=== PATIENT | male | born 1970 | race Hispanic/Latino ===

== ENCOUNTER 2022-09-09 02:07 | Emergency (ER) | payer BC, OTHER ==
[~2022-09-09] VITALS: Ht 175.3 cm; Wt 99.8 kg
[~2022-09-09 02:07] MED LIST: ASPI-556 PO; ATOR20TA65 PO; LOSA25TA41 PO; METF-444 PO
[2022-09-09] MEDS ORDERED: ONDANSETRON 4MG INJ ONE (02:14)
[2022-09-09] MEDS ORDERED: LORAZEPAM 2 MG/ML 1 ML VIAL ONE (02:16)
[2022-09-09 02:24] LABS: BASOPHILS % (AUTO) 0.7 % (0.0-5.0); EOSINOPHILS % (AUTO) 3.9 % (0.0-8.0); HEMATOCRIT 42.1 % (42-54); LYMPHOCYTES % (AUTO) 41.3 % (21.0-51.0); MEAN CORPUSCULAR HEMOGLOBIN 29.7 pg (27.0-33.0); MEAN CORPUSCULAR HGB CONC 34.4 g/dL (32.0-36.0); MEAN CORPUSCULAR VOLUME 86.3 fL (79-99); MONOCYTES % (AUTO) 5.2 % (3.0-13.0); NEUTROPHILS % (AUTO) 48.3 % (40.0-77.0); PLATELET COUNT (AUTO) 298 K/uL (130-400); RED BLOOD CELL COUNT(AUTO) 4.88 MIL/uL (4.50-6.20); RED CELL DISTRIBUTION WIDTH 11.9 % (11.0-15.5)
[2022-09-09] MEDS ORDERED: 0.9%NACL 1000ML 1,000 ML IV SCH (02:30)
[2022-09-09] MEDS ORDERED: LORAZEPAM 2 MG/ML 1 ML VIAL IVP ONE (02:30)
[2022-09-09] MEDS ORDERED: ONDANSETRON 4MG INJ IVP ONE (02:30)
[2022-09-09 02:38] LABS: INR 0.96 (0.85-1.15); PROTHROMBIN TIME 10.5 SEC (9.6-11.6)
[2022-09-09 02:39] LABS: PARTIAL THROMBOPLASTIN TIME 24.8 SEC (26.3-35.5)
[2022-09-09 02:41] LABS: ALBUMIN 4.2 g/dL (3.5-5.0); CREATININE 1.1 mg/dL (0.5-1.5); TOTAL PROTEIN, SERUM 8.7 g/dL (6.0-8.3)
[2022-09-09] MEDS ORDERED: POTASSIUM CHLORIDE 20 MEQ/100 ML BAG IV SCH (03:00)
[2022-09-09] MEDS ORDERED: ONDA-104 PO (04:46)
[2022-09-09] MEDS ORDERED: OMEP40CA21 PO (04:46)
[2022-09-09 05:12] VITALS: BP 141/86
== END 2022-09-09 05:35 | disposition home or self-care (01) ==
LOC: EDH 02:07
DX: E86.0 Dehydration (principal); F41.9 Anxiety disorder, unspecified; R11.2 Nausea with vomiting, unspecified; F12.10 Cannabis abuse, uncomplicated; Z79.82 Long term (current) use of aspirin; Z79.84 Long term (current) use of oral hypoglycemic drugs; Z79.899 Other long term (current) drug therapy
CPT/HCPCS: 99284; 96374; 71045; 96361; 96375; 84484; 80053; 85025; 85610; 85730; 36415; 93005 ×3; J7030; J2405; J2060; J3480

== ENCOUNTER 2025-03-13 16:32 | Emergency (ER) | payer BC ==
[~2025-03-13] VITALS: Ht 175.3 cm; Wt 93.0 kg
[~2025-03-13 16:32] MED LIST changes: +OMEP40CA21 PO; +ONDA-104 PO
--- NOTE | 2025-03-13 17:06 | ERN ---
ED Note History of Present Illness Stated Complaint: FEVER Chief Complaint: Fever Time Seen by MD: 16:38 Dictation: PATIENT IS A 54-YEAR-OLD MALE WITH COMPLAINTS OF HAVING LOW-GRADE FEVER CHILLS FOR SEVERAL DAYS AFTER A TOOTH EXTRACTION IN [place] LAST SATURDAY. THE DENTIST EXTRACTED TOOTH 1. NO ANTIBIOTICS WERE PRESCRIBED AT THAT TIME. HE SAW HIS PRIMARY CARE DOCTOR WHO WHO PRESCRIBED AMOXICILLIN. HE ALSO STATES HE HAS HAD A NONPRODUCTIVE COUGH FOR THE LAST SEVERAL DAYS. HE HAS NOT BEEN TO SEE HIS PRIMARY CARE DOCTOR. HE IS CURRENTLY AFEBRILE IN THE EMERGENCY ROOM. FOLLOWING NOTED TO THE SOCKET PROXIMAL 1. SOCKET PATIENT ALSO STATES HE HAS PERIODS WHERE HE HAS CHOKING EPISODE WHEN HE WAKES UP AND FEELS LIKE HE CAN NOT BREATHE. NEVER HAD ASLEEP STEADY BEFORE HAS NEVER BEEN DIAGNOSED WITH OBSTRUCTIVE APNEA OR SLEEP APNEA. STRONGLY ADVISED PATIENT TO TELL THIS TO HIS PRIMARY CARE DOCTOR FOR REFERRAL TO PULMONOLOGY AND SLEEP STUDY IN THE FUTURE IF NEEDED. Allergies: Coded Allergies: No Known Allergies (Verified Allergy, Unknown, 06/03/19) Home Meds Active Scripts Ondansetron HCl (Ondansetron HCl) 4 Mg Tablet, 4 MG PO TIDP PRN for VOMITING, #20 TAB Prov:CHELSEA ALFARO MD 09/09/22 Omeprazole (Omeprazole) 40 Mg Capsule.dr, 40 MG PO DAILY, #30 CAP Prov:CHELSEA ALFARO MD 09/09/22 Reported Medications Metformin HCl (Metformin HCl) 500 Mg Tablet, 500 MG PO TIDMEALS 06/06/19 Atorvastatin Calcium (Atorvastatin Calcium) 20 Mg Tablet, 20 MG PO HS 06/06/19 Aspirin (Aspir 81) 81 Mg Tablet.dr, 81 MG PO DAILY, TAB 06/06/19 Losartan Potassium (Losartan Potassium) 25 Mg Tablet, 25 MG PO DAILY 06/06/19 Past Medical History Past Medical History: Diabetes-Type II, High Cholesterol, Heart Disease, Hypertension, Other Additional Past Medical Hx: SHINGLES Surgical History: None Family History: Negative Social History: Drugs, ETOH, Lives with family RN Note Reviewed/Agreed w/PFSH: Yes Review of System Dictation CONSTITUTIONAL: NEGATIVE EXCEPT FOR HPI HEAD/FACE: NEGATIVE EXCEPT FOR HPI EENT: NEGATIVE EXCEPT FOR HPI GINGIVAL ERYTHEMA SWELLING PROXIMAL SOCKET 1. RESPIRATORY: NEGATIVE EXCEPT FOR HPI SHORTNESS A BREATH GASTROINTESTINAL/ABDOMINAL: NEGATIVE EXCEPT FOR HPI GENITOURINARY: NEGATIVE EXCEPT FOR HPI MUSCULOSKELETAL: NEGATIVE EXCEPT FOR HPI INTEGUMENTARY: NEGATIVE EXCEPT FOR HPI NEUROLOGICAL/PSYCH: NEGATIVE EXCEPT FOR HPI HEMATOLOGIC/LYMPHATIC: NEGATIVE EXCEPT FOR HPI ALL SYSTEMS NEGATIVE, EXCEPT NOTED ABOVE. 13 POINT REVIEW OF SYSTEMS ASSESSED AND ALL NEGATIVE EXCEPT FOR ABOVE. Initial Vital Sign VS Vital Signs Date Time Temp Pulse Resp B/P (MAP) Pulse Ox O2 Delivery O2 Flow Rate FiO2 03/13/25 16:34 98.2 89 16 125/75 96 Room Air 03/13/25 17:35 0 21 Physical Exam Dictation VITAL SIGNS REVIEWED AFEBRILE IN THE EMERGENCY ROOM. GENERAL APPEARANCE: ALERT, ORIENTED X 3, NO ACUTE DISTRESS, WELL DEVELOPED, NOURISHED. HEAD AND FACE: NON-TRAUMATIC. EYES: PERRL, PINK CONJUNCTIVAS, EYELID NO TRAUMA, ANTERIOR CHAMBER WITH ARCUS SENILIS. EARS: PINNAS INTACT AND NO SIGNS OF TRAUMA OR ERYTHEMA EAR CANALS CLEAR AND NO DISCHARGE TM NO ERYTHEMA NOSE: NO DISCHARGE, NO BLEEDING. OROPHARYNX: MODERATE GINGIVAL ERYTHEMA TO SOCKET 1. PHARYNX CLEAR,NO ERYTHEMA, TONSILS NO EXUDATES, NO ABSCESSES NOTED, MUCOUS MEMBRANE MOIST NECK: SUPPLE, NON-TENDER, NO THYROMEGALY, NO MASSES, NO JVD, NO BRUITS BREAST:DEFERRED CHEST:NO TENDERNESS, NO CREPITUS, NO PARADOXICAL MOVEMENT, NO RETRACTIONS LUNGS:CLEAR, WELL-VENTILATED, SYMMETRIC, NO RALES, NO WHEEZING, NO RHONCHI, NO STRIDOR, GOOD BREATH SOUNDS BILATERALLY NO RETRACTIONS HEART: REGULAR RATE, REGULAR RHYTHM, NO MURMUR, NO GALLOPS VASCULAR: NO PERIPHERAL EDEMA, ABDOMEN: SOFT, POSITIVE BOWEL SOUNDS, NONDISTENDED, NO GUARDING, NONTENDER, NO REBOUND, NO MASSES NO HEPATOMEGALY, NO SPLENOMEGALY, NO DAVIS'S SIGN, NO HERNIAS. RECTAL: DEFERRED GENITAL: DEFERRED NEUROLOGICAL: NORMAL SPEECH, MOTOR FUNCTION INTACT, SENSORY FUNCTION INTACT MUSCULOSKELETAL: NECK NONTENDER, FULL RANGE OF MOTION, BACK NONTENDER, FULL RANGE OF MOTION, EXTREMITIES: NONTENDER, FULL RANGE OF MOTION SKIN: COLOR PINK, DRY, NO TURGOR, NO RASH, NO LACERATIONS, NO ABRASIONS, NO CONTUSIONS. LYMPHATIC: DEFERRED Results (Laboratory/Radiology) Laboratory/Radiology PLEURAL SPACES: No evidence of pleural effusion or pneumothorax. MEDIASTINUM: Cardiac size and mediastinal contours within normal limits. BONES: No acute osseous abnormality. IMPRESSION: 1. No acute cardiopulmonary findings. /[place] Labs Reviewed?: Yes ED Course ED Course Orders Procedure Category Date Status Time Chest 1vw RAD 03/13/25 Resulted 17:04 Clindamycin 150mg Cap PHA 03/13/25 Complete (Cleocin 150mg Cap 17:30 Current Medications Medications (Trade) Dose Ordered Sig/Everardo Route PRN Reason Start Time Stop Time Status Last Admin Dose Admin Clindamycin HCl (Cleocin 150mg Cap) 600 mg ONCE ONCE PO 03/13/25 17:30 03/13/25 17:31 DC 03/13/25 17:59 Vital Signs Date Time Temp Pulse Resp B/P (MAP) Pulse Ox O2 Delivery O2 Flow Rate FiO2 03/13/25 17:35 98.2 90 16 111/62 98 Room Air* 0 21 03/13/25 16:34 98.2 89 16 125/75 96 Room Air 1800/SPOKE WITH PATIENT IN HIS AT LENGTH. THEY ARE AWARE THAT CHEST X SHOWS MILD ATELECTASIS HOWEVER NO ACUTE DISEASE. ALSO STOP AMOXICILLIN FROM [place] AND TAKE CLINDAMYCIN DIRECTED UNTIL GONE. ADDITIONALLY I WE WILL PRESCRIBE HIM AN ALBUTEROL INHALER FOR OCCASIONAL DYSPNEA TESSALON FOR COUGH Medical Decision Making MDM MEDICAL DISCHARGE MAKING BASED ON CHEST X FOR COMPLAINTS OF CONGESTION CHEST X-RAY NEGATIVE EXCEPT FOR MILD ATELECTASIS PATIENT HAS A AN OBVIOUS DENTAL INFECTION GINGIVAL ERYTHEMA SWELLING PROXIMAL SOCKET 1. GIVEN CLINDAMYCIN 600 MG A LOADING DOSE HOME WITH ALBUTEROL/TESSALON/CLINDAMYCIN TOLD SEE HIS PRIMARY CARE DOCTOR FOR DX & DISP Disposition: Discharge Departure Impression: Primary Impression: Dental infection Additional Impressions: Atelectasis of both lungs, Dyspnea Condition: Stable Scripts Albuterol Sulfate (Ventolin Hfa/Proventil Hfa/Proair Hfa) 90 Mcg Puff 2 PUFF IH Q4H for WHEEZING, #1 INHALER 0 Refills Prov: EVER SANCHEZ [employer] ENGINEER 03/13/25 Clindamycin HCl (Clindamycin HCl) 300 Mg Capsule 1 CAP PO QID for 10 Days, #40 CAP 0 Refills Prov: EVER SANCHEZ [employer] ENGINEER 03/13/25 Benzonatate (Tessalon Perles) 100 Mg Cap 200 MG PO TID for cough, #60 CAP 0 Refills Prov: EVER SANCHEZ 03/13/25 Additional Instructions: FOLLOW-UP WITH PRIMARY CARE PROVIDER IN 1 TO 2 DAYS. TAKE MEDICATIONS DIRECTED HERE IN THE EMERGENCY ROOM. OKAY TO CONTINUE HOME MEDICATIONS UNLESS OTHERWISE DISCUSSED DURING YOUR VISIT IN THE EMERGENCY ROOM TODAY. RETURN TO Y OUR NEAREST EMERGENCY ROOM IF SYMPTOMS WORSEN OR IF THERE IS NO IMPROVEMENT. CALL 911 IF YOU NEED IMMEDIATE ASSISTANCE. TAKE TYLENOL OR MOTRIN [id number] NEEDED AND IF NO CONTRAINDICATIONS ARE PRESENT. INCREASE ORAL HYDRATION. A WOUND CULTURE OR URINE CULTURE WAS ORDERED HERE IN THE EMERGENCY ROOM DEPARTMENT PLEASE FOLLOW-UP WITH PRIMARY CARE PROVIDER AND ADVISE THEM TO GET REPEAT PORTS FROM OUR FACILITY. IF YOU HAD ANY [place] WRAP/SPLINTS THAT WERE APPLIED HERE, PLEASE DO NOT REMOVE THEM UNTIL YOU SEE YOUR PRIMARY CARE OR SPECIALTY. USE ALBUTEROL INHALER EVERY4 HOURS WHILE AWAKE FOR THE NEXT THREE DAYS. THEN ONLY NEEDED FOR SHORTNESS BREATH. TAKE TESSALON NEEDED FOR COUGH. STOP AMOXICILLIN AND BEGIN CLINDAMYCIN DIRECTED UNTIL GONE. SEE YOUR DENTIST FOR FOLLOW UP IN THE NEXT 2-3 DAYS IF NO IMPROVEMENT. RECOMMEND SLEEP STUDY FOR YOUR COMPLAINTS OF SLEEP APNEA Referrals: ISELA PARKER MD (PCP) Time of Disposition: 18:04 I have reviewed the case, and I agree with, Diagnosis and Plan EVER SANCHEZ Mar 13, 2025 17:06
--- NOTE | 2025-03-13 17:58 | HMCIMG ---
EXAM: CR Chest, 1 View. CLINICAL HISTORY: NONPRODUCTIVE COUGH FOR SEVERAL DAYS COMPARISON: None provided. FINDINGS: LUNGS: The lungs show no infiltrate or other acute finding. PLEURAL SPACES: No evidence of pleural effusion or pneumothorax. MEDIASTINUM: Cardiac size and mediastinal contours within normal limits. BONES: No acute osseous abnormality. IMPRESSION: 1. No acute cardiopulmonary findings. /[place]
[2025-03-13] MEDS: CLINDAMYCIN 150 MG CAP PO ONE (17:59)
[2025-03-13] MEDS ORDERED: ALBUHFA IH (18:08)
[2025-03-13] MEDS ORDERED: CLIN-141 PO (18:08)
[2025-03-13] MEDS ORDERED: BENZ-39 PO (18:08)
[2025-03-13 18:58] VITALS: BP 112/62; PULSE 82; RESP 16; TEMP 98.3; O2SAT 98
== END 2025-03-13 19:11 | disposition home or self-care (01) ==
LOC: EDH 16:32
DX: K04.7 Periapical abscess without sinus (principal); J98.11 Atelectasis; R06.00 Dyspnea, unspecified; E78.00 Pure hypercholesterolemia, unspecified; E11.9 Type 2 diabetes mellitus without complications; I11.9 Hypertensive heart disease without heart failure; Z79.899 Other long term (current) drug therapy; Z79.82 Long term (current) use of aspirin; Z79.84 Long term (current) use of oral hypoglycemic drugs
CPT/HCPCS: 71045; 99283